=== PATIENT | female | born 2000 | race Caucasian/White ===

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

== ENCOUNTER → 2020-01-24 13:23 | Outpatient (CLI) | payer OTHER, MEDICAID, SELFPAY | PROVIDERS: Referring Provider Obstetrics & Gynecology; Visit Provider Obstetrics & Gynecology | DX: Z36.85 Encounter for antenatal screening for Streptococcus B (principal) | CPT/HCPCS: 87081 ==

== ENCOUNTER 2020-01-29 00:15 | Outpatient (CLI) | payer OTHER, MEDICAID, SELFPAY ==
[2020-01-29 01:24] VITALS: BMI 38.0
[2020-01-29 01:35] VITALS: BP 129/67; PULSE 100; TEMP 37; O2SAT 98
--- NOTE | 2020-01-30 12:17 | OB.TRI.NOTE ---
History of Present Illness Date of Service: 01/29/20 Was patient seen by the physician?: No Reason For Visit: DECREASED MOVEMENT Date of Service: 01/29/20 Final CONSTANTINE: 01/27/20 Final CONSTANTINE Source: US <20 weeks Gestational age: 40 Weeks and 2 Days History of Present Illness: Patient at 40+ weeks gestation reports decreased movement. Presented to labor and delivery for routine nonstress test. Allergies No Known Allergies Allergy (Verified 01/29/20 21:47) Physical Exam Vitals: Vital Signs Temp Pulse BP Pulse Ox 98.6 F 100 129/67 H 98 01/29/20 01:35 01/29/20 01:35 01/29/20 01:35 01/29/20 01:35 NST - FHR Rate Baby A NST Reactive:: Yes FHR Category:: Category I Impression/Plan 40+ week intrauterine with decreased movement. Reactive nonstress test. Occasional uterine contraction. Plan induction later this week. Discharged with routine instructions.
== END 2020-01-29 01:55 | disposition home or self-care (01) ==
LOC: WPOUT 01:17 → OBT 01:18
PROVIDERS: Visit Provider Obstetrics & Gynecology
DX: O36.8130 Decreased fetal movements, third trimester, not applicable or unspecified (principal); Z3A.40 40 weeks gestation of pregnancy
CPT/HCPCS: 59025; 59050; 99218; G0378

== ENCOUNTER 2020-01-29 20:41 | Inpatient (IN) | payer OTHER, MEDICAID, SELFPAY ==
[2020-01-29 01:24] VITALS: BMI 38.0
[2020-01-29 20:18] VITALS: BP 135/78; PULSE 117; TEMP 37.1
[2020-01-29 20:20] VITALS: O2SAT 96
[2020-01-29 20:28] VITALS: BMI 37.4
[2020-01-29] MEDS: Lactated Ringers 1,000 ML 50 ML IV (21:00)
[2020-01-29 21:20] LABS: Absolute Lymphocyte Count 2.45 X10^3/uL (0.83-4.51); Absolute Neutrophil Count 11.8 X10^3/uL (2.0-7.7); Basophil# 0.03 X10^3/uL; Basophil% 0.2 % (0-1); Eosinophil# 0.09 X10^3/uL; Eosinophils% 0.6 % (0-5); Hematocrit 39.5 % (37-47); Hemoglobin 13.1 g/dL (12.0-15.0); Lymphocyte # 2.45 X10^3/ul (4.0); Lymphocyte % 15.8 % (19-41); Mean Corp Hgb Conc 33.2 g/dL (32-36); Mean Corpuscular Hgb 30.4 pg (27.0-32.0); Mean Corpuscular Volume 91.6 fL (81-99); Mean Platelet Vol. 10.5 fl (6.2-12.0); Monocyte# 0.97 X10^3/uL; Monocyte% 6.3 % (0-10); NRBC Flagged by Analyzer 0 % (0-5); Neutrophil # 11.84 X10^3/uL (2.7-7.7); Neutrophil % 76.5 % (47-70); Platelet Count 274 K/mm3 (150-450); RBC Distribution Width CV 12.8 % (11.6-14.6); RBC Distribution Width SD 42.5 fl (35.1-43.9); Red Blood Count 4.31 M/mm3 (4.2-5.4); White Blood Count 15.5 K/mm3 (4.4-11.0)
[2020-01-29 21:29] VITALS: TEMP 36.8
[2020-01-29 21:30] VITALS: BP 129/74; PULSE 100
[2020-01-29 22:26] VITALS: BP 137/63; PULSE 94; TEMP 36.4; O2SAT 98
[2020-01-29] MEDS: Lactated Ringers 500 ML 999 ML IV (23:40)
[2020-01-30] VITALS (63 sets, daily range): BP systolic 107–156; BP diastolic 48–87; PULSE 74–122; RESP 18; TEMP 36.4–37.4; O2SAT 96–99
[2020-01-30] MEDS: fentaNYL-bupivacaine (epidural) 100 ML BAG EPIDURAL ×2 (00:59→05:32)
[2020-01-30] MEDS: Lactated Ringers 1,000 ML 200 ML IV ×2 (04:04→10:07)
[2020-01-30] MEDS: Oxytocin 30 units/NS 500 ml 30 UNITS/500 ML IV.SOLN IV (04:46)
[2020-01-30] MEDS: Lactated Ringers 500 ML 999 ML IV ×2 (05:31→10:22)
--- NOTE | 2020-01-30 09:00 | PCM.PN.BLA ---
Progress Note Received sign out from Dr. Godinez and assumed care of patient approximately 0845h. STROKE Vital Signs/Narrative: Vital Signs Temp Pulse BP Pulse Ox 01/30/20 10:16 90 122/68 H 01/30/20 10:15 98.5 F 90 97 01/30/20 10:01 98.2 F 01/30/20 09:14 97.5 F L 01/30/20 09:04 97.9 F 105 H 126/87 H 99 01/30/20 08:02 99.1 F 86 115/58 L 01/30/20 07:09 99.0 F 80 136/71 H 98
[2020-01-30] MEDS: Ondansetron 4 MG/2 ML Vial IV (09:01)
[2020-01-30] MEDS: Oxytocin 30 units/NS 500 ml 30 UNITS/500 ML IV.SOLN 334 UNITS IV (11:35)
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
--- NOTE | 2020-01-30 13:26 | PCM.OPRPT ---
Problem List (1) 40 weeks gestation of Status: Acute Report of Operation Date of Procedure: 01/30/20 Vaginal Delivery Maternal Presentation: Active Labor Amniotic Membrane Rupture Type: Spontaneous Rupture of Membrane time: 0815h 01/30/20 Amniotic Fluid Description: Clear Final CONSTANTINE: 01/27/20 Final CONSTANTINE Source: US <20 weeks Gestational age: 40 Weeks and 3 Days Date of Procedure: 01/30/20 Pre-Operative Diagnosis: 40 3/7wga Post-Operative Diagnosis: 40 3/7wga Surgery/ Procedure Performed: Spontaneous Vaginal Delivery Type of Anesthesia: Epidural Description of Procedure: Patient was FD/+4 station on my arrival and pushed to deliver infant head. There was a tight nuchal cord x 3. The delivered with ease and the nuchal cords were reduced. The was placed on the maternal abdomen and further attended by nursery personnel. The cord was doubly clamped and cut at 30 s of life. Cord gases and cord blood specimen were obtained. The placenta delivered spontaneously and appeared intact on inspection. A right periurethral laceration was repaired with 3-0 Vicryl Rapide. Chan catheter was removed and replaced due to a stitch incorporating the chan initial tubing. Hemostasis was attained. Sponge and needle counts correct x 2. Presentation: Vertex Placental Delivery Description: Spontaneous Placenta Disposition: [facility] Cord Vessel Description: 3 Vessels Nuchal Cord Compression: With compression Cord Gases drawn per routine: ABG, VBG Cord Entanglement: - - around neck x 3 Drain: Chan to straight drain Estimated Blood Loss: 350 ml A gender: Male (1 minute): 7 (5 minute): 9 Laceration: Periurethral Extnsion/lac Medications given after delivery: IV Pitocin Complications: None
--- NOTE | 2020-01-30 15:31 | NURSING ---
ice pack changed
[2020-01-31] VITALS: BP 122/66; PULSE 105; RESP 18; TEMP 36.8
[2020-01-31 04:00] VITALS: BP 131/70; PULSE 109; RESP 17; TEMP 36.8
[2020-01-31 08:30] VITALS: BP 120/58; PULSE 97; RESP 14; TEMP 36.4
--- NOTE | 2020-01-31 11:23 | PCM.PN.OB ---
Patient Problems: Active and Suspected Problems 40 weeks gestation of (Acute) Subjective: Patient without complaints. Breast-feeding going well. Wants to go home later today if possible. - Physical Exam Vitals/I&O's: Vital Signs Temp Pulse Resp BP Pulse Ox 97.5 F L 97 14 120/58 L 97 01/31/20 08:30 01/31/20 08:30 01/31/20 08:30 01/31/20 08:30 01/30/20 10:15 Oxygen Delivery Method Room Air Weight: 204 lb 12.951 oz Body Mass Index (BMI) 37.4 Intake and Output for Last 24 Hours 01/29/20 01/30/20 01/31/20 23:59 23:59 23:59 Intake Total 133.33 / 133.33 4269.76 / 4269.76 Output Total 2800 / 2800 Balance 133.33 / 133.33 1469.76 / 1469.76 Current Medications Acetaminophen (Tylenol) 325 - 650 mg PO Q4H PRN PRN PRN Reason: Pain Score 1-3/10 Acetaminophen (Tylenol) 1,000 mg PO Q8H PRN PRN PRN Reason: Pain Score 1-3/10 Bisacodyl (Dulcolax) 10 mg RECTAL UD PRN PRN Reason: If no BM Dibucaine (Dibucaine) 1 applic TOPICAL TID PRN PRN; Protocol PRN Reason: Discomfort Hydrocortisone (Hytone) 1 applic TOPICAL TID PRN PRN; Protocol PRN Reason: Discomfort Methylergonovine Maleate (Methergine) 0.2 mg IM X1 PRN PRN Reason: Excess bleeding/uterine atony Ondansetron HCl (Zofran) 4 mg IV Q4H PRN PRN PRN Reason: NAUSEA Last Admin: 01/30/20 09:01 Dose: 4 mg Documented by: Multivit/Folic Acid/Iron (Prenatabs Fa) 1 tablet PO DAILY@1200 EMILY Senna/Docusate Sodium (Senokot-S, Jacque-Colace) 1 - 2 tablet PO DAILY PRN PRN PRN Reason: Constipation Simethicone (Mylicon) 80 mg PO PCHS PRN PRN Reason: Indigestion/Stomach pain Sodium Chloride () 5 - 15 ml IV UD PRN PRN Reason: SALINE FLUSH Medical Necessity - Tobacco Use Smoking Status: Former smoker Assessment/Plan All Active Problems 40 weeks gestation of (Acute) Doing well day #1 status post routine spontaneous vaginal delivery. Will release to home with routine instructions.
--- NOTE | 2020-01-31 11:25 | DCINST_ITS ---
Discharge Diet: No Restrictions Discharge Activity: May Shower, May Take a Tub Bath May resume sexual activity in: 4-6 weeks Additional Activity Instructions:: Nothing in the vagina for 4-6 weeks. You may return to work/school in 6 weeks. Call your doctor if you observe: Inability to urinate, Inability to have a bowel movement, Using more than one pad per hour Additional Instructions: If you experience any of the following, contact your healthcare provider. * Bleeding that soaks a pad every hour for 2 hours * Fever 100.4 or higher * Unrelieved incision or abdominal pain * Swelling, redness, discharge or bleeding from your incision or episiotomy site * Your incision begins to separate * Problems urinating (including inability to urinate or burning while urinating). * Visual changes * Severe headache * Flu-like symptoms * Pain or redness in one of both of your breasts * Pain, warmth, tenderness or swelling in your legs, especially the calf area * Frequent nausea and vomiting * Symptoms of depression or anxiety If you experience any of the following, call 911 or go to the nearest Emergency Room. * Chest pain * Problems breathing * Seizure activity * Partial or complete paralysis of a body part, slurred speech, weakness or drooping of the face, or a sudden inability to walk or hold your balance Allergies/Adverse Reactions: Allergies No Known Allergies Allergy (Verified 01/29/20 21:47) Medications to take at Discharge Vit No.130/Iron/Folic [ Tablet] 1 ea PO DAILY 10/04/19 Please Follow Up With: Catarina Fox, [facility] - [phone] When: Call to make an appointment with your systems administrator in 2 and 6 weeks. Primary Care Physician: Care Physician,No Primary [Primary Care Provider] - Test Results: Test results from this visit will be discussed in further detail at your follow- up appointment, if applicable.
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
--- NOTE | 2020-01-31 11:25 | PCM.DCVAG ---
Discharge Diet: No Restrictions Discharge Activity: May Shower, May Take a Tub Bath May resume sexual activity in: 4-6 weeks Additional Activity Instructions:: Nothing in the vagina for 4-6 weeks. You may return to work/school in 6 weeks. Call your doctor if you observe: Inability to urinate, Inability to have a bowel movement, Using more than one pad per hour Additional Instructions: If you experience any of the following, contact your healthcare provider. Bleeding that soaks a pad every hour for 2 hours Fever 100.4 or higher Unrelieved incision or abdominal pain Swelling, redness, discharge or bleeding from your incision or episiotomy site Your incision begins to separate Problems urinating (including inability to urinate or burning while urinating). Visual changes Severe headache Flu-like symptoms Pain or redness in one of both of your breasts Pain, warmth, tenderness or swelling in your legs, especially the calf area Frequent nausea and vomiting Symptoms of depression or anxiety If you experience any of the following, call 911 or go to the nearest Emergency Room. 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 Primary Care Physician: Care Physician,No Primary [Primary Care Provider] - Test Results: Test results from this visit will be discussed in further detail at your follow-up appointment, if applicable.
[2020-01-31] MEDS: Prenatal Vits Tablet 1 TABLET PO (11:49)
[2020-01-31 12:10] VITALS: BP 123/70; PULSE 88; RESP 18; TEMP 36.6
== END 2020-01-31 15:20 | disposition home or self-care (01) | DRG 807 ==
LOC: WPOUT 20:44 → WP 01-30 08:17
PROVIDERS: Obstetrics & Gynecology; Admitting Provider Obstetrics & Gynecology; Referring Provider Obstetrics & Gynecology; Visit Provider Obstetrics & Gynecology
DX: O69.1XX0 Labor and delivery complicated by cord around neck, with compression, not applicable or unspecified (principal); O71.82 Other specified trauma to perineum and vulva; Z87.891 Personal history of nicotine dependence; Z3A.40 40 weeks gestation of pregnancy; Z37.0 Single live birth
CPT/HCPCS: 59025; 59050; 85025; 86850; 86900; 86901; 99218; J7120; G0378; J2405

== ENCOUNTER 2021-08-04 09:24 | Emergency (ER) | payer OTHER, SELFPAY ==
[2021-08-04 09:25] VITALS: BP 115/62; PULSE 81; RESP 16; TEMP 36.4; O2SAT 98; BMI 32.9
--- NOTE | 2021-08-04 10:27 | CT_ITS ---
STUDY: CT BRAIN WITHOUT CONTRAST REASON FOR EXAM: Female, 20 years old. Fall RADIATION DOSAGE (If Supplied By Facility): CTDIvol = ( 44.99 ) mGy, DLP = ( 745.49 ) mGycm TECHNIQUE: Transaxial CT imaging of the brain was performed without administration of intravenous contrast material. Individualized dose optimization techniques were used for this CT. COMPARISON: No relevant priors. FINDINGS: Normal soft tissue structures. Normal calvarium. Normal size ventricles and extra-axial spaces for the patient''s age. Normal white matter tracts of the cerebral hemispheres. Normal basal ganglia and thalami. Normal brainstem. Normal cerebellum. There is no intracranial hemorrhage. There are no findings of an acute ischemic infarction. Normal visualized paranasal sinuses. CT/Brain/Head without Contrast IMPRESSION: Normal unenhanced CT scan of the brain. Electronically Signed: Logan Lara MD at 11:31 EDT , Service support ,
--- NOTE | 2021-08-04 10:27 | EKG12_ITS ---
Test Reason : SYNCOPE Blood Pressure : / mmHG Vent. Rate : 070 BPM Atrial Rate : 070 BPM P-R Int : 118 ms QRS Dur : 092 ms QT Int : 394 ms P-R-T Axes : 025 026 008 degrees QTc Int : 425 ms Normal sinus rhythm with sinus arrhythmia Normal ECG Confirmed by YOVANI CASTILLO, EULALIO ([id number]), writer editor MEENU GRAHAM ([id number]) on 08/05/2021 9:10:00 AM Referred By: YOCASTA Confirmed By:EULALIO PINA MD
--- NOTE | 2021-08-04 10:28 | US_ITS ---
STUDY: ULTRASOUND OF THE FEMALE PELVIS - COMPLETE REASON FOR EXAM: Female, 20 years old. Bleeding LMP: 06/07/2021. TECHNIQUE: Transvaginal TECHNICAL QUALITY: Adequate. COMPARISON: None. FINDINGS: The uterus is anteverted and is in a midline position. The uterus measures 8.8 cm x 5.8 cm x 4.3 cm. Normal uterine cervix. The endometrium measures 4 mm in thickness, and is hyperechoic. There is no demonstrated endometrial mass. There is no demonstrated myometrial mass. I.U.D. - The patient does not have an I.U.D. The right ovary is visualized. The right ovary measures 3 cm x 2.6 cm x 1.9 cm. There is no right ovarian cyst or ovarian mass. There is no visualized right adnexal mass or complex lesion. There is normal arterial and normal venous vascularity. The left ovary is visualized. The left ovary measures 2.4 cm x 2.8 cm x 1.7 cm. There is no left ovarian cyst or ovarian mass. There is no visualized left adnexal mass or complex lesion. There is normal arterial and normal venous vascularity. There is minimal fluid in the cul-de-sac. US/Transvaginal Non- IMPRESSION: Minimal amount of free fluid is seen in the cul-de-sac. Electronically Signed: Logan Lara MD at 12:56 EDT , Service support ,
--- NOTE | 2021-08-04 10:29 | EDS_ITS ---
HPI History of Present Illness Chief Complaint: Syncope Narrative Narrative: 20-year-old female presenting after syncopal episode. Patient states she was standing at home felt lightheaded and then had a syncopal episode. She denies hitting her head. Her boyfriend who was present stated that she was twitching and shaking after the incident. She does not recall the events surrounding this. She states she has been having menstrual cramps. She states she has periods every 3 months since giving 18 months ago. She is not sure if she could be . She has nausea and vomiting. Denies other complaints. Prior similar symptoms: No Recent Illness/Hospitalization: No PFSH PFSH Medical History (Updated 08/04/21 @ 13:[address] Shaunna Caruso MD) Anxiety Depression Home Medications sertraline 50 mg PO DAILY 08/04/21 [History Last Taken 08/03/21] Allergy/AdvReac Type Severity Reaction Status Date / Time No Known Allergies Allergy Verified 08/04/21 09:28 Social History Smoking Status: Never smoker ROS ROS ED Constitutional Constitutional ED: Denies fever(s) Eyes Eyes: Denies change in vision ENT ENT ED: Denies rhinorrhea or sore throat Cardiovascular Cardiovascular: Denies chest pain or palpitations Respiratory/Chest Respiratory/Chest: Denies cough or dyspnea Gastrointestinal Gastrointestinal: Reports abdominal pain, nausea and vomiting; Denies diarrhea Genitourinary Genitourinary ED: Denies dysuria Musculoskeletal Musculoskeletal: Denies myalgias Integumentary Denies rash Neurologic Neurologic: Denies headache(s) Psychiatric Psychiatric: Denies suicidal thoughts EXAM Physical Exam Const Vital Signs: 08/04/21 09:25 08/04/21 09:33 08/04/21 10:40 Temperature 97.5 F L Temperature Source Temporal Pulse Rate 81 Pulse Rate [Lying] 71 Pulse Rate [Sitting] 76 Pulse Rate [Standing] 94 Respiratory Rate 16 Respiratory Effort Normal Non-Labored Respiratory Pattern Normal Blood Pressure 115/62 Blood Pressure [Lying] 112/64 Blood Pressure [Sitting] 104/72 Blood Pressure [Standing] 102/63 Blood Pressure Mean 79 Blood Pressure Mean [Lying] 80 Blood Pressure Mean [Sitting] 82 Blood Pressure Mean [Standing] 76 Pulse Ox 98 Oxygen Delivery Method Room Air 08/04/21 12:19 Temperature Temperature Source Pulse Rate 90 Pulse Rate [Lying] Pulse Rate [Sitting] Pulse Rate [Standing] Respiratory Rate 15 Respiratory Effort Respiratory Pattern Blood Pressure 114/77 Blood Pressure [Lying] Blood Pressure [Sitting] Blood Pressure [Standing] Blood Pressure Mean 89 Blood Pressure Mean [Lying] Blood Pressure Mean [Sitting] Blood Pressure Mean [Standing] Pulse Ox 97 Oxygen Delivery Method Room Air Positive well nourished and well developed General Appearance ED: well developed HEENT Reports normocephalic and head/scalp atraumatic Eyes PERRL and EOMs intact bilaterally Neck supple General: Negative for tenderness Chest Wall inspection of chest normal Resp normal respiratory effort and clear to auscultation bilaterally Cardio regular rate and regular rhythm GI non-distended Palpation: soft and tender LLQ and RLQ; Negative for guarding or rebound tenderness present no CVA tenderness Extremity normal to inspection Neuro oriented x3 Sensorium / Orientation: alert Psych mental status grossly normal MDM MDM MDM Narrative Medical decision making narrative: Patient was given IV fluids, Zofran. CBC shows white count 13.2, hemoglobin 14.1. Chemistries unremarkable. hCG negative. Urinalysis shows 5-10 white blood cells, over 100 red blood cells. Urine culture was sent. CT head shows no acute process. Pelvic ultrasound shows minimal amount of free fluid in the cul-de-sac. On reevaluation, patient is resting comfortably. I believe this is more likely syncope but could be new onset seizure. She was referred to neurology. She is advised to not drive until seen by neurology. Advised to return to the ED for worsening complaints. Lab Data Attestation: I reviewed the patient's lab results. Labs: Laboratory Results - last 24 hr 08/04/21 08/04/21 08/04/21 10:00 10:00 10:00 WBC 13.2 H RBC 4.66 Hgb 14.1 Hct 41.9 MCV 89.9 MCH 30.3 MCHC 33.7 RDW Std Deviation 39.9 RDW Coeff of Darrell 12.2 Plt Count 295 MPV 9.2 Immature Gran % (Auto) 0.300 Neut % (Auto) 82.7 H Lymph % (Auto) 12.1 L Emanuel % (Auto) 4.2 Eos % (Auto) 0.5 Baso % (Auto) 0.2 Absolute Neuts (auto) 10.9 H Absolute Lymphs (auto) 1.60 Nucleated RBC % 0 Sodium 137 Potassium 4.1 Chloride 105 Carbon Dioxide 27.0 Anion Gap 5 BUN 19 H Creatinine 0.74 Estim Creat Clear Calc 95.91 Est GFR (MDRD) Af Amer 128 Est GFR (MDRD) Non-Af 106 BUN/Creatinine Ratio 25.7 H Glucose 93 Calcium 9.2 Serum , Qual NEGATIVE Urine Color Urine Clarity Urine pH Ur Specific [place] Urine Protein Urine Glucose (UA) Urine Ketones Urine Occult Blood Urine Nitrite Urine Bilirubin Urine Urobilinogen Ur Leukocyte Esterase Urine RBC Urine WBC Ur Squamous Epith Cells Urine Bacteria Urine Mucus 08/04/21 11:02 WBC RBC Hgb Hct MCV MCH MCHC RDW Std Deviation RDW Coeff of Darrell Plt Count MPV Immature Gran % (Auto) Neut % (Auto) Lymph % (Auto) Emanuel % (Auto) Eos % (Auto) Baso % (Auto) Absolute Neuts (auto) Absolute Lymphs (auto) Nucleated RBC % Sodium Potassium Chloride Carbon Dioxide Anion Gap BUN Creatinine Estim Creat Clear Calc Est GFR (MDRD) Af Amer Est GFR (MDRD) Non-Af BUN/Creatinine Ratio Glucose Calcium Serum , Qual Urine Color Red Urine Clarity Turbid Urine pH 5.0 Ur Specific [place] 1.025 Urine Protein 100 H Urine Glucose (UA) Normal Urine Ketones 5 H Urine Occult Blood 250 H Urine Nitrite Negative Urine Bilirubin Negative Urine Urobilinogen Normal Ur Leukocyte Esterase 100 H Urine RBC > 100 SEEN Urine WBC 5-10 SEEN Ur Squamous Epith Cells 0-5 SEEN Urine Bacteria 1+ Urine Mucus 0 SEEN Radiography Diagnostic Testing: Clinical Impression(s) from Imaging Studies Brain CT 08/04/21 10:27 IMPRESSION: Normal unenhanced CT scan of the brain. Electronically Signed: Logan Lara MD at 11:31 EDT , Service support , Transvaginal US 08/04/21 10:28 IMPRESSION: Minimal amount of free fluid is seen in the cul-de-sac. Electronically Signed: Logan Lara MD at 12:56 EDT , Service support , EKG Initial EKG: Attestation: I personally reviewed and interpreted this EKG as follows: Interpretation: Sinus Rhythm and No Acute Injury Pattern Discharge Plan Triage Chief Complaint: Syncope ED Provider: Shaunna Caruso Dx/Rx/DC Orders Clinical Impression: Syncope, Transient alteration of awareness Instructions: ED Fainting, Uncertain Cause Prescriptions: No Action sertraline 50 mg tablet 50 mg PO DAILY RF: 0 Primary Care Provider: Care Physician,No Primary Referrals: Reji Farrar MD [STAFF PHYSICIAN] - Care Physician,No Primary [Primary Care Provider] - Disposition Disposition: Home, Self Care
[2021-08-04 10:37] LABS: Absolute Neutrophil Count 10.9 X10^3/uL (2.0-7.7); Basophil# 0.03 X10^3/uL; Basophil% 0.2 % (0-1); Eosinophil# 0.07 X10^3/uL; Eosinophils% 0.5 % (0-5); Hematocrit 41.9 % (37-47); Hemoglobin 14.1 g/dL (12.0-15.0); Lymphocyte % 12.1 % (19-41); Mean Corp Hgb Conc 33.7 g/dL (32-36); Mean Corpuscular Hgb 30.3 pg (27.0-32.0); Mean Corpuscular Volume 89.9 fL (81-99); Mean Platelet Vol. 9.2 fl (6.2-12.0); Monocyte# 0.56 X10^3/uL; Monocyte% 4.2 % (0-10); NRBC Flagged by Analyzer 0 % (0-5); Neutrophil # 10.94 X10^3/uL (2.7-7.7); Neutrophil % 82.7 % (47-70); Platelet Count 295 K/mm3 (150-450); RBC Distribution Width CV 12.2 % (11.6-14.6); RBC Distribution Width SD 39.9 fl (35.1-43.9); Red Blood Count 4.66 M/mm3 (4.2-5.4); White Blood Count 13.2 K/mm3 (4.4-11.0)
[2021-08-04 10:38] LABS: Internal QC Validated? YES +Cl - CLEAR BKGD; Pregnancy, Serum, hCG Quali. NEGATIVE Negative
[2021-08-04 10:40] VITALS: BP 102/63; BP 104/72; BP 112/64; PULSE 71; PULSE 76; PULSE 94
[2021-08-04] MEDS: 0.9% Normal Saline 1,000 ML 1000 ML IV (10:40)
[2021-08-04] MEDS: Ondansetron 4 MG/2 ML Vial IV (10:40)
[2021-08-04 10:45] LABS: Anion Gap 5 (5-15); BUN 19 mg/dL (7-18); BUN/Creat Ratio 25.7 RATIO (10-20); Calcium,Total 9.2 mg/dL (8.5-10.1); Chloride 105 mmol/L (98-107); Creatinine, Serum 0.74 mg/dL (0.55-1.02); EST Glomerular Filtration Rate 106 mL/min (>60); Est Glom Filt Rate - Afr Amer 128 mL/min (>60); Estimated Creatinine Clearance 95.91 ml/min; Glucose 93 mg/dL (74-106); Potassium 4.1 mmol/L (3.5-5.1); Sodium Level 137 mmol/L (136-145)
[2021-08-04 11:10] LABS: Mucous, Urine 0 SEEN /hpf (<or=2+)
[2021-08-04 11:16] LABS: Color, Urine Red (Yellow); Glucose, Dipstick Normal (Normal); Ketone-Dipstick 5 mg/dl (Negative); Leukocyte Esterase-Dipstick 100 /ul (Negative); Nitrite-Dipstick Negative (Negative); Occult Blood-Urine 250 /ul (Negative); Protein-Dipstick 100 mg/dl (Negative); Specific Gravity, Urine 1.025 (1.002-1.030); Urine Bilirubin Dipstick Negative (Negative); Urine Clarity Turbid (Clear); Urine Urobilinogen Normal (Normal)
[2021-08-04 11:18] LABS: Bacteria 1+ /hpf (None Seen); Red Blood Cells-Urine > 100 SEEN /hpf (0-5); Squamous Epithelial Cells - UA 0-5 SEEN /hpf (5-10); White Blood Cells 5-10 SEEN /hpf (0-5)
[2021-08-04 12:19] VITALS: BP 114/77; PULSE 90; RESP 15; O2SAT 97
[2021-08-04 14:30] VITALS: BP 109/62; PULSE 98; RESP 16; O2SAT 98
== END 2021-08-04 14:38 | disposition home or self-care (01) ==
PROVIDERS: Emergency Provider Emergency Medicine
DX: R55 Syncope and collapse (principal); N94.6 Dysmenorrhea, unspecified; R40.4 Transient alteration of awareness; R11.2 Nausea with vomiting, unspecified; F32.A Depression, unspecified; F41.9 Anxiety disorder, unspecified; Z79.899 Other long term (current) drug therapy
CPT/HCPCS: 70450; 76830; 80048; 81001; 84703; 85025; 87086; 87088; 93005; 93976; 96361; 96374; 99285; J7030; J2405